=== PATIENT | female | born 1985 ===

== ENCOUNTER → 2017-06-29 | Outpatient (CLI) | payer BC | LOC: MMGSC 10:47 | PROVIDERS: ATTEND Family Medicine | DX: N39.0 Urinary tract infection, site not specified (principal) | CPT/HCPCS: 87086 ==

== ENCOUNTER 2018-02-04 04:59 | Inpatient (IN) | payer OTHER ==
[2018-02-04] MEDS ORDERED: LIDOCAINE 1% (PF) 10 MG/ML (30 ML SDV) SQ PRN (05:19)
[2018-02-04] MEDS ORDERED: OXYTOCIN 10 UNIT/ML 1 ML VIAL IM PRN (05:19)
[2018-02-04] MEDS ORDERED: TERBUTALINE 1 MG/ML VIAL SQ PRN (05:19)
[2018-02-04] MEDS ORDERED: METHYLERGONOVINE 0.2 MG/ML 1 ML AMP IM PRN (05:19)
[2018-02-04] MEDS ORDERED: CARBOPROST TROMETHAMINE 250 MCG/ML 1 ML AMP IM PRN (05:19)
[2018-02-04] MEDS: LACTATED RINGERS 1,000 ML IV SCH ×3 (05:20→22:57)
[2018-02-04 05:29] LABS: Basophils % (A) 0 %; Eosinophils # (A) 0.1 k/uL (0-0.7); Eosinophils % (A) 1 %; HCT 39.4 % (34.0-46.0); Lymphocytes # (A) 1.7 k/uL (1.0-4.8); Lymphocytes % (A) 14 %; MCH 31.1 pg (25.0-35.0); MCHC 35.5 g/dL (31.0-37.0); MCV 87.6 fL (80.0-100.0); Mean Platelet Volume 8.1; Monocytes # (A) 0.6 k/uL (0-1.0); Monocytes % (A) 4 %; Neutrophils # (A) 9.9 k/uL (1.3-7.7); Neutrophils % (A) 79 %; Platelet Count 241 k/uL (150-450); WBC 12.6 k/uL (3.8-10.6)
[2018-02-04 05:45] VITALS: BMI 40.2
[2018-02-04] MEDS ORDERED: BUTORPHANOL 1 MG/ML 1 ML VIAL IV PRN (06:36)
[2018-02-04] MEDS ORDERED: OXYTOCIN 20 UNITS/1000 ML NS 1,000 ML IV SCH ×2 (09:00→18:45)
--- NOTE | 2018-02-04 09:12 | P.HPOB ---
History of Present Illness H&P Date: 02/04/18 Chief Complaint: 38+ weeks, spontaneous rupture of membranes The patient is a 32-year-old 1 para 0 admitted at 38-3/7 weeks as established by last menstrual period and confirmed by 14 week ultrasound. She is admitted with documented spontaneous rupture of membranes of clear fluid. Her has been uncomplicated though she does carry a history of factor to mutation for which she underwent maternal medicine consultation. There was no intervention necessary though she did have weekly nonstress testing after 32 weeks which was reassuring. She is also known to be Rh- and received RhoGAM at 28 weeks. Group B strep status is negative. Obstetrical history: 1 para 0 with current statistics listed above. EDC of 02/16/2018 was established by last menstrual period and confirmed by 28 week ultrasound. Laboratory workup demonstrates a blood type of B- with the negative antibody screen. Rubella status is immune. All other laboratory workups within normal limits. Early Glucola as well as second trimester Glucola were within normal limits and group B strep status is negative. Gynecologic history: Unremarkable with no history of any infections to include STDs. Review of Systems Review of systems is confined to history of present illness. Past Medical History Past Medical History: No Reported History History of Any Multi-Drug Resistant Organisms: None Reported Past Surgical History: No Surgical Hx Reported Past Anesthesia/Blood Transfusion Reactions: No Reported Reaction Past Psychological History: No Psychological Hx Reported Smoking Status: Never smoker Past Alcohol Use History: None Reported Past Drug Use History: None Reported - Past Family History Mother Family Medical History: No Reported History Medications and Allergies Home Medications Medication Instructions Recorded Confirmed Type Cetirizine HCl [Zyrtec] 10 mg PO DAILY 02/04/18 02/04/18 History Pnv,Calcium 72/Iron/Folic Acid 1 tab PO DAILY 02/04/18 02/04/18 History [ Plus Tablet] Allergies Allergy/AdvReac Type Severity Reaction Status Date / Time Penicillins Allergy Unknown Verified 02/04/18 05:08 Tetracyclines AdvReac Rapid Verified 02/04/18 05:08 Heart Rate Exam - Vital Signs Vital signs: Vital Signs Temp Pulse Resp BP Pulse Ox 02/04/18 05:14 97.4 F L 125 H 16 143/91 100 Intake and Output 02/03/18 02/04/18 02/04/18 22:59 06:59 14:59 Other: # Voids 1 Weight 99.79 kg In general, this is a well-developed, moderately obese white female in no acute distress. Her heart has a regular rhythm and rate without murmur. Her lungs are clear to auscultation bilaterally in all grady. Her abdomen is gravid, nondistended, has normal active bowel sounds, soft, nontender, without any palpable masses aside from uterine fundus. Her extremities without any cyanosis , clubbing, or edema and are nontender to palpation bilaterally. Digital cervical examination performed by the nursing staff demonstrates her cervix to be 3 cm dilated, 50% effaced, with the vertex in presentation at -2 station. Spontaneous rupture of membranes has been confirmed. Fluid is clear. Results Result Diagrams: 02/04/18 05:15 Abnormal Lab Results - Last 24 Hours (Table) 02/04/18 Range/Units 05:15 WBC 12.6 H (3.8-10.6) k/uL Neutrophils # 9.9 H (1.3-7.7) k/uL Assessment and Plan (1) Spontaneous rupture of membranes Current Visit: Yes Status: Acute Code(s): [id number] - SNOMED Code(s): 009603524 Plan: The patient has been admitted for active management of labor. She will have Pitocin augmentation started. Close maternal surveillance Yoel practice along with expectant management. She is a good candidate for either IV or epidural analgesia, whichever she may choose.
[2018-02-04] MEDS ORDERED: SODIUM CHLORIDE 0.9% 100 ML BAG ONE (11:11)
[2018-02-04] MEDS ORDERED: fentaNYL (PF) 50 MCG/ML 5 ML AMP ONE (11:11)
[2018-02-04] MEDS ORDERED: BUPIVACAINE (PF) 0.25% 30 ML VIAL ONE (11:11)
[2018-02-04] MEDS ORDERED: BUPIVACAINE (PF) 0.25% 25 ML, fentaNYL (PF) 200 MCG in SODIUM CHLORIDE 0.9% 71 ML EPIDURAL ONE ×2 (11:41→11:42)
[2018-02-04] MEDS ORDERED: CLINDAMYCIN 900 MG in DEXTROSE 5% IN WATER 50 ML IVPB STA ×2 (14:23)
[2018-02-04] MEDS ORDERED: MORPHINE SULFATE (PF) 0.3 MG/0.3 ML SYR ONE (17:47)
[2018-02-04] MEDS ORDERED: KETOROLAC 30 MG/ML 1 ML VIAL ONE (17:47)
[2018-02-04] MEDS ORDERED: OXYTOCIN 10 UNIT/ML 1 ML VIAL ONE (17:47)
[2018-02-04] MEDS ORDERED: LACTATED RINGERS 1,000 ML BAG IV ONE (17:47)
[2018-02-04] MEDS ORDERED: LIDOCAINE HCL/PF 20 MG/ML 10 ML AMP ONE (17:47)
[2018-02-04] MEDS ORDERED: fentaNYL (PF) 50 MCG/ML 2 ML AMP ONE (17:47)
[2018-02-04] MEDS ORDERED: ONDANSETRON 4 MG/2 ML VIAL ONE (17:47)
[2018-02-04] MEDS ORDERED: CITRIC ACID-SODIUM CITRATE 15 ML CUP PO ONE (18:38)
[2018-02-04] MEDS ORDERED: METOCLOPRAMIDE 5 MG/ML 2 ML VIAL IVP PRN (18:40)
[2018-02-04] MEDS ORDERED: SIMETHICONE 80 MG CHEWABLE PO PRN (18:40)
[2018-02-04] MEDS ORDERED: ONDANSETRON 4 MG/2 ML VIAL IVP PRN ×2 (18:40→19:04)
[2018-02-04] MEDS ORDERED: diphenhydrAMINE 50 MG/ML 1 ML VIAL IVP PRN ×2 (18:40)
[2018-02-04] MEDS ORDERED: ZOLPIDEM 5 MG TAB PO PRN (18:40)
[2018-02-04] MEDS ORDERED: diphenhydrAMINE 25 MG CAP PO PRN (18:40)
[2018-02-04] MEDS ORDERED: LANOLIN CREAM 5 GM TUBE TOPICAL PRN (18:40)
[2018-02-04] MEDS ORDERED: NALOXONE 0.4 MG/ML 1 ML VIAL IV PRN ×2 (18:40→19:04)
[2018-02-04] MEDS ORDERED: Acetaminophen-Codeine 300-30mg TAB PO PRN ×2 (18:40)
[2018-02-04] MEDS ORDERED: diphenhydrAMINE 50 MG CAP PO PRN (18:40)
[2018-02-04] MEDS ORDERED: LACTATED RINGERS 1,000 ML IV SCH (18:45)
--- NOTE | 2018-02-04 18:51 | P.OP ---
Date of Procedure: 02/04/18 Preoperative Diagnosis: #1. 38-2/7 weeks, spontaneous rupture of membranes #2. Arrest of dilation and descent Postoperative Diagnosis: Same plus #3. right occiput posterior Procedure(s) Performed: Primary low-transverse section Anesthesia: epidural Surgeon: Sergey Shelby Binding Printer #1: Amber Bell Estimated Blood Loss (ml): 500 IV fluids (ml): 800 Urine output (ml): 300 Pathology: other (Placenta) Condition: stable Disposition: floor Operative Findings: Preoperatively, the patient had noted spontaneous rupture of membranes for 13- 14 hours prior to the decision to proceed with section. She presented to the hospital at 3 cm of dilation and been on Pitocin all day. She made progress to approximate 4 cm at 11 AM and it was no more than 4-1/2 cm at approximately 5 PM. There was no descent of the head which remained at a very high station and not well applied to the cervix. Given these findings and the concern for malposition as well as perhaps a contracted pelvis, decision was made to proceed with primary low-transverse section. She was taken to the operating room where she was delivered of a viable 6 lbs. 14 oz. baby boy with Apgars of 8 at 1 minute and 9 at 5 minutes delivered in the right occiput posterior position. There was a nuchal cord times to which was reduced following delivery of the head. The placenta was delivered manually, intact, and grossly normal with a grossly normal three-vessel cord. The uterus, tubes, and ovaries were entirely normal to inspection. Description of Procedure: The patient was prepped and draped in usual fashion after epidural anesthesia was bolused by the anesthesiologist. After ensuring excellent anesthesia, a Pfannenstiel incision was made and extended into the abdominal cavity without difficulty. The bladder peritoneum was elevated, incised, and reflected distally. A 2 cm incision was made in the transverse plane of the lower uterine segment to enter the uterus at which time clear fluid was again noted. The incision was extended in both directions bluntly. The head was encountered in the pelvis in the right occiput posterior position with significant capita and molding. The head was delivered up and through the incision where the nose and mouth were thoroughly suctioned. Nuchal cord 2 was noted and reduced. The remainder of the infant was delivered onto the field where the cord was doubly clamped, cut, and the passed for resuscitative measures with weight and Apgars as noted above. cord blood was collected for evaluation for the necessity of RhoGAM. A segment of cord was then doubly clamped, cut, and set aside should cord gases become necessary. The placenta was delivered manually and intact as noted above. The uterus was exteriorized and the interior cavity of the uterus swept of any remaining polyp was then or membranous fragments. The margins of the incision were grasped with Thomason clamps and the incision closed in 2 layers. The first layer was a running locking stitch of 0 chromic catgut from from margin to margin followed by a running imbricating layer of 0 chromic catgut. There was some ongoing bleeding noted in the midportion of the incision which was made hemostatic with the 3 [id number] stitches of 0 chromic catgut. Any other small points of bleeding were made hemostatic with the Bovie. The uterine and ovarian findings were normal as noted above. The uterus was replaced within the abdominal cavity after suctioning the posterior cul-de-sac with a guard. The gutters were swept of any remaining blood, fluid, or clot. The incision was again reexamined and, once adequate hemostasis had been achieved, the parietal peritoneum was loosely reapproximated. The layer of muscles examined and found to be hemostatic. The fascia was closed with 2 running stitches of 0 Vicryl proceeding from lateral margins to midpoint. The subcutaneous tissues were irrigated, made hemostatic with the Bovie, and reapproximated with a running stitch of 30 plain catgut. The skin was reapproximated with a running subcuticular stitch of 4-0 Vicryl followed by half-inch Steri-Strips placed with Mastisol. Estimated blood loss for the case was approximate 500 mL. There were no complications. All sponge, instrument, and needle counts were correct. Both mother and infant are resting comfortably in recovery.
[2018-02-04] MEDS ORDERED: MORPHINE SULFATE/PF 10MG/10ML VL IVP PRN (19:04)
[2018-02-04 22:55] LABS: Glucose,Whole Blood 89 mg/dL (75-99)
[2018-02-04] MEDS: SENNOSIDES-DOCUSATE SODIUM 1 EACH TAB PO SCH (22:57)
[2018-02-04] MEDS ORDERED: CLINDAMYCIN 900 MG in DEXTROSE 5% IN WATER 50 ML IVPB SCH ×2 (23:00)
[2018-02-04] MEDS ORDERED: Rhogam IMMUNE GLOBULIN 1,500 UNIT/1 ML IM ONE (23:46)
[2018-02-05] MEDS: KETOROLAC 30 MG/ML 1 ML VIAL IVP PRN ×3 (03:33→15:41)
[2018-02-05 07:59] LABS: Basophils % (A) 0 %; Eosinophils # (A) 0.1 k/uL (0-0.7); Eosinophils % (A) 0 %; HGB 11.5 gm/dL (11.4-16.0); Lymphocytes # (A) 1.1 k/uL (1.0-4.8); Lymphocytes % (A) 7 %; MCHC 34.8 g/dL (31.0-37.0); MCV 89.2 fL (80.0-100.0); Mean Platelet Volume 8.4; Monocytes # (A) 0.8 k/uL (0-1.0); Monocytes % (A) 5 %; Neutrophils # (A) 13.8 k/uL (1.3-7.7); Neutrophils % (A) 87 %; Platelet Count 197 k/uL (150-450); RDW 13.1 % (11.5-15.5); WBC 15.9 k/uL (3.8-10.6)
--- NOTE | 2018-02-05 08:43 | P.PNOBGPC ---
Subjective - Subjective Patient reports: Reports appetite normal, Reports voiding normally, Reports pain well controlled, Reports ambulating normally : doing well Objective - Vital Signs Latest vital signs: Vital Signs Temp Pulse Resp BP Pulse Ox 02/05/18 06:00 16 02/05/18 04:00 98.2 F 115 H 16 121/73 98 02/05/18 02:00 16 02/05/18 00:00 98.9 F 128 H 16 126/78 97 02/04/18 20:05 98.2 F 125 H 18 128/66 97 02/04/18 20:04 18 97 02/04/18 19:38 100.2 F H 135 H 18 138/69 96 02/04/18 19:23 135 H 18 153/87 97 02/04/18 19:08 98.5 F 136 H 18 132/78 97 02/04/18 19:04 18 97 02/04/18 18:53 135 H 18 136/80 98 02/04/18 18:38 98.2 F 118 H 18 143/74 99 Intake and Output 02/04/18 02/05/18 02/05/18 22:59 06:59 14:59 Intake Total 1000 Output Total 800 Balance 200 Intake: Intake, IV Titration 1000 Amount Oxytocin 20 Units/1000 ml 1000 Ns 1,000 ml @ Per Protocol IV .Q0M [facility] Rx#: [id number] Output: Urine 800 Uretheral (Peterson) 800 Other: Voiding Method Indwelling Catheter Indwelling Catheter - Exam Extremities: Present: normal Abdomen: Present: normal appearance, soft. Absent: distention, tenderness Incision: Present: normal, dry, intact Uterus: Present: normal, firm (The uterine fundus as tonic and nontender below the umbilicus.) - Labs Labs: Abnormal Lab Results - Last 24 Hours (Table) 02/05/18 Range/Units 06:56 WBC 15.9 H (3.8-10.6) k/uL RBC 3.70 L (3.80-5.40) m/uL Hct 33.0 L (34.0-46.0) % Neutrophils # 13.8 H (1.3-7.7) k/uL Assessment and Plan (1) Spontaneous rupture of membranes Current Visit: Yes Status: Acute Code(s): [id number] - SNOMED Code(s): 650380053 (2) S/P section Current Visit: Yes Status: Acute Code(s): Z98.891 - HISTORY OF UTERINE SCAR FROM PREVIOUS SURGERY SNOMED Code(s): 311678541 Plan: Continue routine postoperative care. I would anticipate discharge home tomorrow pending applications. I have encouraged her to ambulate in the halls at least 4 times daily. A regular diet is available to her and she has been up and ambulating this morning.
[2018-02-05] MEDS: SENNOSIDES-DOCUSATE SODIUM 1 EACH TAB PO SCH ×2 (09:39→20:11)
[2018-02-05] MEDS: ENOXAPARIN 40 MG/0.4 ML SYRINGE SQ SCH (10:36)
--- NOTE | 2018-02-05 10:54 | P.PN ---
Progress Note - Text Progress Note Date: 02/05/18 Postoperative day 1 status post section under epidural analgesia,, and epidural morphine given for postoperative analgesia, patient doing well, there is no anesthesia related complications, Patient had no headache, vital signs stable , Assessment and plan= postop day 1 status post , doing well there is no anesthesia related complication.
[2018-02-05] MEDS: ACETAMINOPHEN TAB 325 MG TAB PO PRN (20:10)
[2018-02-05] MEDS: IBUPROFEN 600 MG TAB PO PRN (23:57)
[2018-02-06] MEDS: SENNOSIDES-DOCUSATE SODIUM 1 EACH TAB PO SCH (07:46)
[2018-02-06] MEDS: IBUPROFEN 600 MG TAB PO PRN ×2 (07:47→14:20)
--- NOTE | 2018-02-06 08:29 | P.DS ---
Providers Date of admission: 02/04/18 05:19 Expected date of discharge: 02/06/18 Attending physician: Sergey Shelby Primary care physician: Stated None - Discharge Diagnosis(es) (1) Spontaneous rupture of membranes Current Visit: Yes Status: Acute (2) S/P section Current Visit: Yes Status: Acute Hospital Course: The patient is a 32-year-old 1 para 0 admitted at 38-3/7 weeks by good dating parameters. She is admitted with documented spontaneous rupture of membranes with clear fluid. Her was uncomplicated though she has a history of factor 2 mutation for which she underwent maternal medicine consultation. No significant interventions were recommended aside from serial growth ultrasounds which were normal during the . testing was reassuring. She is also Rh- and received RhoGAM at 28 weeks. Group B strep status is negative. On labor and delivery, she had Pitocin augmentation started and the an epidural Catheter placed. She made very minimal progress throughout the entire course of her labor process which was approximately 15 hours of. There was no descent of the head into the pelvis and no pressure against the cervix. Given these findings, she was taken the operating room where she was delivered of a viable 6 lbs. 14 oz. baby boy with Apgars of 8 at 1 minute and 9 at 5 minutes by primary low transverse section. Her post operative course was entirely unremarkable vital signs being stable and her temperature was afebrile throughout. She was deemed stable for discharge by post operative day #2 and was discharged home to follow-up in the office in 2 weeks for an incision check and 6 weeks routinely. Discharge instructions included calling for any significantly increased bleeding or foul- smelling lochia, significantly increased fever abdominal pain, perineal complaints, breast complaints, incisional complaints, or anything else that concerned her. She is additionally instructed to have nothing in the vagina for at least 6 weeks time to include intercourse and to abstain from any heavy lifting over the same period of time. She was lastly instructed to do no driving until off of all pain medications or 2 weeks' time, whichever came first. She understood her instructions and agrees to follow up as noted above. Discharge medications included continued vitamins as she has opted to breast-feed. She additionally was started on Lovenox 40 mg subcutaneously once daily for DVT prophylaxis given her factor 2 mutation concerns. She was additionally provided a prescription for Tylenol 3, 1-2 by mouth every 6 hours when necessary pain, #30 dispensed with no refills. Maternal blood type is B- with a negative antibody screen and rubella status is immune. Discharge hemoglobin and hematocrit were 11.5 and 33.0 respectively. Procedures: #1. Pitocin augmentation #2. Epidural analgesia #3. Primary low-transverse section Patient Condition at Discharge: Good Plan - Discharge Summary New Discharge Prescriptions: No Action Cetirizine HCl [Zyrtec] 10 mg PO DAILY Pnv,Calcium 72/Iron/Folic Acid [ Plus Tablet] 1 tab PO DAILY Omeprazole [Omeprazole] 1 tab PO DAILY Discharge Medication List Cetirizine HCl [Zyrtec] 10 mg PO DAILY 02/04/18 [History] Omeprazole [Omeprazole] 1 tab PO DAILY 02/04/18 [History] Pnv,Calcium 72/Iron/Folic Acid [ Plus Tablet] 1 tab PO DAILY 02/04/18 [ History] Follow up Appointment(s)/Referral(s): Sergey Shelby MD [STAFF PHYSICIAN] - 2 Weeks Discharge Disposition: HOME SELF-CARE
[2018-02-06] MEDS: ENOXAPARIN 40 MG/0.4 ML SYRINGE SQ SCH (10:23)
[2018-02-06] MEDS: ACETAMINOPHEN TAB 325 MG TAB PO PRN (10:24)
[2018-02-06 11:01] VITALS: PULSE 110; RESP 18
[2018-02-06 17:31] VITALS: BP 137/82; TEMP 98.2
== END 2018-02-06 17:00 | disposition home or self-care (01) | DRG 765 ==
LOC: FBPOP 04:59 → 4FBP 05:19
PROVIDERS: ADMIT Obstetrics & Gynecology; ATTEND Obstetrics & Gynecology
PROC: 3E0R3NZ Introduction of Analgesics, Hypnotics, Sedatives into Spinal Canal, Percutaneous Approach (ICD-10-PCS; 2018-02-04)
PROC: 00HU33Z Insertion of Infusion Device into Spinal Canal, Percutaneous Approach (ICD-10-PCS; 2018-02-04)
PROC: 10D00Z1 Extraction of Products of Conception, Low, Open Approach (ICD-10-PCS; principal; 2018-02-04 17:56)
DX: O62.1 Secondary uterine inertia (principal); Z68.41 Body mass index [BMI] 40.0-44.9, adult; O64.0XX0 Obstructed labor due to incomplete rotation of fetal head, not applicable or unspecified; O99.214 Obesity complicating childbirth; O69.81X0 Labor and delivery complicated by cord around neck, without compression, not applicable or unspecified; Z67.21 Type B blood, Rh negative; Z37.0 Single live birth; Z3A.38 38 weeks gestation of pregnancy; Z79.899 Other long term (current) drug therapy; Z88.1 Allergy status to other antibiotic agents; Z88.0 Allergy status to penicillin
CPT/HCPCS: 59025; 84112; 85025; 85461; 88307; 99213

== ENCOUNTER 2020-03-28 22:30 | Emergency (ER) | payer OTHER ==
[2020-03-28 22:36] VITALS: TEMP 99.1
[2020-03-28] MEDS ORDERED: SODIUM CHLORIDE 0.9% 1,000 ML IV ONE (22:48)
[2020-03-28 23:11] LABS: Glucose,Whole Blood 169 mg/dL (75-99)
[2020-03-28 23:11] LABS: Glucose,Whole Blood 166 mg/dL (75-99)
[2020-03-28 23:15] LABS: Basophils % (A) 0 %; Eosinophils % (A) 0 %; HCT 36.8 % (34.0-46.0); HGB 12.7 gm/dL (11.4-16.0); Lymphocytes # (A) 1.6 k/uL (1.0-4.8); Lymphocytes % (A) 9 %; MCH 30.6 pg (25.0-35.0); MCHC 34.6 g/dL (31.0-37.0); MCV 88.3 fL (80.0-100.0); Mean Platelet Volume 9.8; Monocytes # (A) 0.5 k/uL (0-1.0); Monocytes % (A) 3 %; Neutrophils # (A) 15.2 k/uL (1.3-7.7); Neutrophils % (A) 87 %; Platelet Count 271 k/uL (150-450); RBC 4.17 m/uL (3.80-5.40); RDW 12.7 % (11.5-15.5); WBC 17.6 k/uL (3.8-10.6)
[2020-03-28 23:27] LABS: Potassium 3.9 mmol/L (3.5-5.1)
[2020-03-28 23:28] LABS: ALT 14 U/L (4-34); AST 19 U/L (14-36); African American GFR (CKD) >90 (>60 ml/min/1.73 sqM); Albumin 4.1 g/dL (3.5-5.0); Alkaline Phosphatase 83 U/L (38-126); Anion Gap 13 mmol/L; Blood Urea Nitrogen 11 mg/dL (7-17); Calcium 9.3 mg/dL (8.4-10.2); Carbon Dioxide 16 mmol/L (22-30); Chloride 103 mmol/L (98-107); Glucose 147 mg/dL (74-99); Non-African American GFR(CKD) >90 (>60 ml/min/1.73 sqM); Sodium 132 mmol/L (137-145); Total Bilirubin 0.5 mg/dL (0.2-1.3)
--- NOTE | 2020-03-29 00:09 | US ---
EXAMINATION TYPE: Transabdominal DATE OF EXAM: 03/28/2020 11:47 PM COMPARISON: NONE CLINICAL HISTORY: Heavy vaginal bleeding. EXAM PERFORMED: Transabdominal (TA) EXAM MEASUREMENTS: GESTATIONAL AGE / DATING Physician Established: Not yet established ( Dates by LMP: (7 weeks/5 days) EDC: 11/09/20 Dates by First Scan: No previous this is first scan Dates by Current Scan for: (7 weeks/2 days) EDC: 11/12/20 MATERNAL ANATOMY Uterus: 9.8 x 5.3 x 6.8cm Right Ovary: 2.3 x 2.0 x 2.4cm Left Ovary: 1.5 x 1.4 x 1.7cm Post CDS / Adnexa: wnl Presence of free fluid: no Presence of possible corpus luteal cyst 1.3cm Presence of subchorionic bleed: 5.0 x 2.1 x 4.1cm GESTATION / SURVEY CRL: 1.2 (7 weeks/2 days) MSD: ( weeks/ days) Yolk Sac (normal less than 6mm): 2mm Heart Rate: 150 bpm IUP: Viable IUP Date of LMP: 02/03/20 Beta HcG (if available): Not available at this time Viable IUP with large subchorionic hemorrhage measuring 5.0 x 2.1 x 4.1cm IMPRESSION: Living intrauterine fetus with heart rate 150. Large complex fluid collection adjacent to the g estational sac consistent with subchorionic hemorrhage. No evidence of ectopic .
--- NOTE | 2020-03-29 00:14 | ED ---
General Adult HPI - General Chief complaint: Vaginal Bleeding Stated complaint: Poss Miscarriage Time Seen by Provider: 03/28/20 22:48 Source: patient, family Mode of arrival: ambulatory Limitations: no limitations - History of Present Illness Initial comments: 34-year-old female patient who is approximately 8 weeks presents to the emergency department today for heavy vaginal bleeding and passage of clots. Patient states that the bleeding started earlier today and has been quite heavy throughout the day. Patient states she started to feel lightheaded this evening so she presented here for further evaluation. She is . 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 Denies history of DVT or PE. Patient states she is having significant lower abdominal low back cramping. While in triage patient did have an episode where she became unconscious and had general body rigidity. This lasted about 30 seconds, she then became conscious again and had no post ictal period. Denies any hematuria, dysuria, urinary frequency, urinary urgency. Patient denies any recent rash, cough, shortness of breath, chest pain, numbness, tingling, dizziness, weakness, headache, visual changes, or any other complaints. - Related Data Home Medications Medication Instructions Recorded Confirmed Cetirizine HCl [Zyrtec] 10 mg PO DAILY 02/04/18 02/04/18 Omeprazole 1 tab PO DAILY 02/04/18 02/04/18 Pnv,Calcium 72/Iron/Folic Acid 1 tab PO DAILY 02/04/18 02/04/18 [ Plus Tablet] Previous Rx's Medication Instructions Recorded Cephalexin [Keflex] 500 mg PO BID #14 cap 03/29/20 Allergies Allergy/AdvReac Type Severity Reaction Status Date / Time Penicillins Allergy Unknown Verified 03/28/20 22:36 Tetracyclines AdvReac Rapid Verified 03/28/20 22:36 Heart Rate Review of Systems ROS Statement: Those systems with pertinent positive or pertinent negative responses have been documented in the HPI. ROS Other: All systems not noted in ROS Statement are negative. Past Medical History Past Medical History: GERD/Reflux History of Any Multi-Drug Resistant Organisms: None Reported Past Surgical History: Section Past Anesthesia/Blood Transfusion Reactions: No Reported Reaction Past Psychological History: No Psychological Hx Reported Smoking Status: Never smoker Past Alcohol Use History: None Reported Past Drug Use History: None Reported - Past Family History Mother Family Medical History: No Reported History General Exam Limitations: no limitations General appearance: alert, in no apparent distress, other (This is a well- developed, well-nourished adult female patient in no acute distress. Vital signs upon presentation are temperature 99.1F, pulse 152, respirations 22, blood pressure 124/80, pulse ox 100% on room air.) Eye exam: Present: normal appearance, PERRL, EOMI. Absent: scleral icterus, conjunctival injection, periorbital swelling ENT exam: Present: normal exam, normal oropharynx, mucous membranes moist Respiratory exam: Present: normal lung sounds bilaterally. Absent: respiratory distress, wheezes, rales, rhonchi, stridor Cardiovascular Exam: Present: normal rhythm, tachycardia, normal heart sounds. Absent: systolic murmur, diastolic murmur, rubs, gallop, clicks GI/Abdominal exam: Present: soft, tenderness (Suprapubic tenderness), normal bowel sounds. Absent: distended, guarding, rebound, rigid Neurological exam: Present: alert, oriented X3, CN II-XII intact Psychiatric exam: Present: normal affect, normal mood Skin exam: Present: warm, dry, intact, normal color. Absent: rash Course Vital Signs 03/28/20 03/29/20 22:31 00:30 Temperature 99.1 F Pulse Rate 152 H 98 Respiratory 22 18 Rate Blood Pressure 124/80 121/80 O2 Sat by Pulse 100 98 Oximetry EKG Findings - EKG Comments: EKG Findings:: EKG obtained at 2245 shows sinus tachycardia with ventricular rate of 122, SD interval 126, QRS duration 84, QT 328, QTC 467. No evidence of ST elevation or depression. Medical Decision Making - Medical Decision Making 34-year-old female patient presents to the emergency department today for evaluation of heavy vaginal bleeding with passage of large clots. Physical examination did reveal lower abdominal tenderness. Pelvic exam was performed and did reveal mild vaginal bleeding is dark red in color. 2 small clots are noted in the vaginal vault. Cervix is closed. Patient did have an episode in triage her she was unconscious for about 30 seconds. This seems to be consis tent with syncopal episode. Labs reviewed and reveal elevated white blood cell count is 17,000. HCG level is 55,000. Urine is contaminated with blood, sent for culture. Patient did report urinary tract infection symptoms so we will treat for UTI with one dose of Rocephin and 1 week of Keflex. Ultrasound was obtained and did show a viable intrauterine measuring 7 weeks 2 days with a heart rate of 150. There is also a large complex fluid collection adjacent to the gestational sac which is consistent with subchorionic hemorrhage. Patient's blood type was B-. We will give RhoGAM. We did discuss all findings and results, discussed threatened miscarriage versus subchorionic hemorrhage as a cause for her symptoms. She'll be given a lab slip to have repeat hCG performed in 2 days. She is instructed to call the NEUROLOGY TECHNICIAN in the morning. Return parameters were discussed in detail. She verbalizes understanding and agrees with this plan. - Lab Data Result diagrams: 03/28/20 23:03 03/28/20 23:03 Lab Results 03/28/20 03/28/20 03/28/20 Range/Units 23:01 23:03 23:03 WBC 17.6 H (3.8-10.6) k/uL RBC 4.17 (3.80-5.40) m/uL Hgb 12.7 (11.4-16.0) gm/dL Hct 36.8 (34.0-46.0) % MCV 88.3 (80.0-100.0) fL MCH 30.6 (25.0-35.0) pg MCHC 34.6 (31.0-37.0) g/dL RDW 12.7 (11.5-15.5) % Plt Count 271 (150-450) k/uL Neutrophils % 87 % Lymphocytes % 9 % Monocytes % 3 % Eosinophils % 0 % Basophils % 0 % Neutrophils # 15.2 H (1.3-7.7) k/uL Lymphocytes # 1.6 (1.0-4.8) k/uL Monocytes # 0.5 (0-1.0) k/uL Eosinophils # 0.0 (0-0.7) k/uL Basophils # 0.0 (0-0.2) k/uL PT (9.0-12.0) sec INR (<1.2) APTT (22.0-30.0) sec Sodium 132 L (137-145) mmol/L Potassium 3.9 (3.5-5.1) mmol/L Chloride 103 (98-107) mmol/L Carbon Dioxide 16 L (22-30) mmol/L Anion Gap 13 mmol/L BUN 11 (7-17) mg/dL Creatinine 0.49 L (0.52-1.04) mg/dL Est GFR (CKD-EPI)AfAm >90 (>60 ml/min/1.73 sqM) Est GFR (CKD-EPI)NonAf >90 (>60 ml/min/1.73 sqM) Glucose 147 H (74-99) mg/dL POC Glucose (mg/dL) 166 H (75-99) mg/dL POC Glu Grinding Room Supervisor ID Aleksandr Diallo Calcium 9.3 (8.4-10.2) mg/dL Total Bilirubin 0.5 (0.2-1.3) mg/dL AST 19 (14-36) U/L ALT 14 (4-34) U/L Alkaline Phosphatase 83 (38-126) U/L Total Protein 7.0 (6.3-8.2) g/dL Albumin 4.1 (3.5-5.0) g/dL HCG, Quant 26211.9 mIU/mL Urine Color Urine Appearance (Clear) Urine pH (5.0-8.0) Ur Specific [place] (1.001-1.035) Urine Protein (Negative) Urine Glucose (UA) (Negative) Urine Ketones (Negative) Urine Blood (Negative) Urine Nitrite (Negative) Urine Bilirubin (Negative) Urine Urobilinogen (<2.0) mg/dL Ur Leukocyte Esterase (Negative) Urine RBC (0-5) /hpf Urine WBC (0-5) /hpf Ur Squamous Epith Cells (0-4) /hpf Blood Type Blood Type Recheck Bld Type Recheck Status 03/28/20 03/28/20 03/28/20 Range/Units 23:03 23:03 23:59 WBC (3.8-10.6) k/uL RBC (3.80-5.40) m/uL Hgb (11.4-16.0) gm/dL Hct (34.0-46.0) % MCV (80.0-100.0) fL MCH (25.0-35.0) pg MCHC (31.0-37.0) g/dL RDW (11.5-15.5) % Plt Count (150-450) k/uL Neutrophils % % Lymphocytes % % Monocytes % % Eosinophils % % Basophils % % Neutrophils # (1.3-7.7) k/uL Lymphocytes # (1.0-4.8) k/uL Monocytes # (0-1.0) k/uL Eosinophils # (0-0.7) k/uL Basophils # (0-0.2) k/uL PT 10.7 (9.0-12.0) sec INR 1.0 (<1.2) APTT 18.6 L (22.0-30.0) sec Sodium (137-145) mmol/L Potassium (3.5-5.1) mmol/L Chloride (98-107) mmol/L Carbon Dioxide (22-30) mmol/L Anion Gap mmol/L BUN (7-17) mg/dL Creatinine (0.52-1.04) mg/dL Est GFR (CKD-EPI)AfAm (>60 ml/min/1.73 sqM) Est GFR (CKD-EPI)NonAf (>60 ml/min/1.73 sqM) Glucose (74-99) mg/dL POC Glucose (mg/dL) 169 H (75-99) mg/dL POC Glu Grinding Room Supervisor ID Aleksandr Diallo Calcium (8.4-10.2) mg/dL Total Bilirubin (0.2-1.3) mg/dL AST (14-36) U/L ALT (4-34) U/L Alkaline Phosphatase (38-126) U/L Total Protein (6.3-8.2) g/dL Albumin (3.5-5.0) g/dL HCG, Quant mIU/mL Urine Color Urine Appearance (Clear) Urine pH (5.0-8.0) Ur Specific [place] (1.001-1.035) Urine Protein (Negative) Urine Glucose (UA) (Negative) Urine Ketones (Negative) Urine Blood (Negative) Urine Nitrite (Negative) Urine Bilirubin (Negative) Urine Urobilinogen (<2.0) mg/dL Ur Leukocyte Esterase (Negative) Urine RBC (0-5) /hpf Urine WBC (0-5) /hpf Ur Squamous Epith Cells (0-4) /hpf Blood Type B Negative Blood Type Recheck B Neg Bld Type Recheck Status No 03/29/20 Range/Units 00:54 WBC (3.8-10.6) k/uL RBC (3.80-5.40) m/uL Hgb (11.4-16.0) gm/dL Hct (34.0-46.0) % MCV (80.0-100.0) fL MCH (25.0-35.0) pg MCHC (31.0-37.0) g/dL RDW (11.5-15.5) % Plt Count (150-450) k/uL Neutrophils % % Lymphocytes % % Monocytes % % Eosinophils % % Basophils % % Neutrophils # (1.3-7.7) k/uL Lymphocytes # (1.0-4.8) k/uL Monocytes # (0-1.0) k/uL Eosinophils # (0-0.7) k/uL Basophils # (0-0.2) k/uL PT (9.0-12.0) sec INR (<1.2) APTT (22.0-30.0) sec Sodium (137-145) mmol/L Potassium (3.5-5.1) mmol/L Chloride (98-107) mmol/L Carbon Dioxide (22-30) mmol/L Anion Gap mmol/L BUN (7-17) mg/dL Creatinine (0.52-1.04) mg/dL Est GFR (CKD-EPI)AfAm (>60 ml/min/1.73 sqM) Est GFR (CKD-EPI)NonAf (>60 ml/min/1.73 sqM) Glucose (74-99) mg/dL POC Glucose (mg/dL) (75-99) mg/dL POC Glu Grinding Room Supervisor ID Calcium (8.4-10.2) mg/dL Total Bilirubin (0.2-1.3) mg/dL AST (14-36) U/L ALT (4-34) U/L Alkaline Phosphatase (38-126) U/L Total Protein (6.3-8.2) g/dL Albumin (3.5-5.0) g/dL HCG, Quant mIU/mL Urine Color Red Urine Appearance Cloudy H (Clear) Urine pH 6.5 (5.0-8.0) Ur Specific [place] 1.013 (1.001-1.035) Urine Protein 1+ H (Negative) Urine Glucose (UA) Negative (Negative) Urine Ketones 1+ H (Negative) Urine Blood Large H (Negative) Urine Nitrite Negative (Negative) Urine Bilirubin Negative (Negative) Urine Urobilinogen <2.0 (<2.0) mg/dL Ur Leukocyte Esterase Moderate H (Negative) Urine RBC >182 H (0-5) /hpf Urine WBC >182 H (0-5) /hpf Ur Squamous Epith Cells 1 (0-4) /hpf Blood Type Blood Type Recheck Bld Type Recheck Status - Radiology Data Radiology results: report reviewed Ultrasound was obtained. Report was reviewed in its entirety. Impression by Dr. Oden shows living intrauterine fetus with heart rate of 150. Large complex fluid collection adjacent to the gestational sac consistent with subchorionic hemorrhage. No evidence of ectopic . Disposition Clinical Impression: Threatened miscarriage, Subchorionic hemorrhage Disposition: HOME SELF-CARE Condition: Good Instructions (If sedation given, give patient instructions): Rh (By injection), Threatened Miscarriage (ED), Subchorionic Hemorrhage (ED) Additional Instructions: Follow up with OBGYN as soon as possible. Increase fluids. Rest. Maintain pelvic rest, nothing inserted into the vagina until cleared by OBGYN. Return to the emergency department for any new, worsening, or concerning symptoms. Prescriptions: Cephalexin [Keflex] 500 mg PO BID #14 cap Is patient prescribed a controlled substance at d/c from ED?: No Referrals: Aliyah Dobbs MD [Primary Care Provider] - 1-2 days Roz Fuchs MD [STAFF PHYSICIAN] - 1-2 days Time of Disposition: 01:28
[2020-03-29 00:16] LABS: HCG,Quantitative Serum 55117.9 mIU/mL
[2020-03-29 00:19] LABS: Prothrombin Time 10.7 sec (9.0-12.0)
[2020-03-29 00:23] LABS: Partial Thromboplastin Time 18.6 sec (22.0-30.0)
[2020-03-29 00:30] VITALS: BP 121/80; PULSE 98; RESP 18
[2020-03-29] MEDS ORDERED: Rhogam IMMUNE GLOBULIN 1,500 UNIT/1 ML IM ONE (00:45)
[2020-03-29 01:24] LABS: Appearance,Urine Cloudy (Clear); Bilirubin,Urine Negative (Negative); Blood,Urine Large (Negative); Color,Urine Red; Glucose,Urine (UA) Negative (Negative); Ketones,Urine 1+ (Negative); Leukocyte Esterase,Urine Moderate (Negative); Nitrite,Urine Negative (Negative); PH, Urine 6.5 (5.0-8.0); Protein,Urine 1+ (Negative); RBC,Urine >182 /hpf (0-5); Specific Gravity,Urine 1.013 (1.001-1.035); Squamous Epithelial Cell,Urine 1 /hpf (0-4); Urobilinogen,Urine <2.0 mg/dL (<2.0); WBC,Urine >182 /hpf (0-5)
[2020-03-29] MEDS ORDERED: cefTRIAXone IN SWFI 1,000 MG/10 ML SYRINGE IVP STA (01:26)
== END 2020-03-29 02:22 | disposition home or self-care (01) ==
LOC: EC 22:30
DX: O20.0 Threatened abortion (principal); O99.89 Other specified diseases and conditions complicating pregnancy, childbirth and the puerperium; R40.20 Unspecified coma; R31.9 Hematuria, unspecified; O99.111 Other diseases of the blood and blood-forming organs and certain disorders involving the immune mechanism complicating pregnancy, first trimester; D72.829 Elevated white blood cell count, unspecified; K21.9 Gastro-esophageal reflux disease without esophagitis; Z29.14 Encounter for prophylactic rabies immune globulin; Z79.899 Other long term (current) drug therapy; Z3A.01 Less than 8 weeks gestation of pregnancy; Z88.0 Allergy status to penicillin; Z88.1 Allergy status to other antibiotic agents; Z98.890 Other specified postprocedural states
CPT/HCPCS: 36415; 93005; 86900; 86901; 80053; 85025; 85610; 85730; 86850; 81001; 84702; 87086; 76801; 96374; 96372; 96361; 99284; J2791; J0696

== ENCOUNTER → 2020-07-22 | Outpatient (CLI) | payer OTHER ==
--- NOTE | 2020-07-22 13:25 | US ---
EXAMINATION TYPE: US venous doppler duplex LE RT DATE OF EXAM: 07/22/2020 1:12 PM COMPARISON: NONE CLINICAL HISTORY: M79.661 Right Leg Pain. SIDE PERFORMED: Right TECHNIQUE: The lower extremity deep venous system is examined utilizing real time linear array sonog akil with graded compression, doppler sonography and color-flow sonography. VESSELS IMAGED: External Iliac Vein (EIV) Common Femoral Vein Deep Femoral Vein Greater Saphenous Vein * Femoral Vein Popliteal Vein Small Saphenous Vein * Proximal Calf Veins (* superficial vessels) Right Leg: Negative for DVT IMPRESSION: No evidence for DVT.
== END | disposition home or self-care (01) ==
LOC: RADUSWWP 12:53
PROVIDERS: ATTEND Family Medicine
DX: M79.661 Pain in right lower leg (principal)